=== PATIENT | male | born 1985 | race Caucasian/White ===

== ENCOUNTER 2017-07-11 10:39 | Day surgery (SDC) | payer MEDICARE ==
[2017-07-11] MEDS ORDERED: DIPRIVAN 200 MG/20 ML IV ONE (10:40)
[2017-07-11] MEDS ORDERED: DEXAMETHASONE 10 MG/ML VIAL PF IJ ONE (10:40)
[2017-07-11] MEDS ORDERED: Lactated Ringers 1,000 ML IV ONE (10:40)
[2017-07-11] MEDS ORDERED: XYLOCAINE 1% HCL 20 ML MDV ONE (12:25)
--- NOTE | 2017-07-11 14:26 | XRAY ---
Indication: Right L4-L5 CHANO. Intraoperative fluoroscopy was provided for 52 seconds. 4 digital spot images submitted for interpretation demonstrates posterior spinal needle tips projecting over the expected course of the right L4 and L5 nerve roots. Small amount of contrast injected for needle tip placement. Correlate with intraoperative findings/report.
--- NOTE | 2017-07-11 14:52 | XRAY ---
52 seconds fluoroscopy time in surgery for right L4-L5 CHANO.
--- NOTE | 2017-07-12 13:07 | OP ---
AMENDED REPORT: DATE OF PROCEDURE: 07/11/2017 1219 SURGEON: Gila Forman D.O. PREOPERATIVE DIAGNOSIS: Degenerative lumbar spine disease, lumbar spondylosis. POSTOPERATIVE DIAGNOSIS: Degenerative lumbar spine disease, lumbar spondylosis. PROCEDURES PERFORMED: Right L5-L4 epidural steroid injection under fluoroscopic guidance. DESCRIPTION OF PROCEDURE: The patient was taken to the operating room and laid in the prone position on the table. Skin over the injection site was prepped and draped in sterile fashion. Under fluoroscope bony anatomy at the targeted injection site was visualized. Induction agent was given as per anesthesia while vital signs were monitored. Local anesthetic agent was introduced to anesthetize the skin in the subcutaneous tissue through injection site. Under fluoroscopic guidance a #22-gauge standard spinal needle was advanced into the target facet joint through an oblique approach. Preservative free dexamethasone 10 mg was injected into each of the target epidural space. While the needle was being removed normal saline was simultaneously infiltrated to avoid sterile needle tract. Skin was cleansed with alcohol and then a bandage was applied. There was 40% pain reduction after the procedure. No complications or adverse consequences were observed. The patient was returned to the holding area until stabilized before discharge to home. The patient will be followed up within ten days after the injection for re-evaluation.
== END 2017-07-11 13:20 | disposition home or self-care (01) ==
LOC: SDC-PAIN 10:39
PROVIDERS: ATTEND Internal Medicine
DX: M54.16 Radiculopathy, lumbar region (principal); M51.36 Other intervertebral disc degeneration, lumbar region; M62.838 Other muscle spasm
CPT/HCPCS: 62323; 72020; 77003; J2704; Q9967

== ENCOUNTER 2017-09-05 08:48 | Day surgery (SDC) | payer MEDICARE ==
[2017-09-05] MEDS ORDERED: LIDOCAINE HCL 2% 100 MG/5 ML IJ ONE (08:49)
[2017-09-05] MEDS ORDERED: Marcaine 0.5% SDV 10 ML IJ ONE (08:49)
[2017-09-05] MEDS ORDERED: DIPRIVAN 200 MG/20 ML IV ONE (08:49)
[2017-09-05] MEDS ORDERED: XYLOCAINE-MPF 1% 5ML SDV IJ ONE (08:49)
[2017-09-05] MEDS ORDERED: Lactated Ringers 1,000 ML IV ONE (09:14)
--- NOTE | 2017-09-05 11:02 | XRAY ---
Indication: L3-L4 MBB. Intraoperative fluoroscopy was provided for 37 seconds. 2 digital spot images submitted for interpretation demonstrates posterior spinal needle tip projecting over the right L3-L4 and L4-L5 facets. Correlate with intraoperative findings/report.
--- NOTE | 2017-09-05 12:28 | XRAY ---
37 seconds fluoroscopy time in surgery for L3-L4 nerve MBB.
--- NOTE | 2017-09-06 08:04 | OP ---
DATE OF PROCEDURE: 09/05/2017 1011 SURGEON: Gila Forman D.O. PREOPERATIVE DIAGNOSIS: Degenerative lumbar spine disease, spondylosis, low back pain. POSTOPERATIVE DIAGNOSIS: Degenerative lumbar spine disease, spondylosis, low back pain. PROCEDURE PERFORMED: Right L4-L3 medial branch block under fluoroscopic guidance. DESCRIPTION OF THE PROCEDURE: The patient was taken to the operating room and placed in the prone position on the table. Skin at the injection site was prepped and draped in sterile fashion. Under fluoroscopy, bony anatomy of the targeted injection site was visualized. Induction agent was given as per anesthesia while vital signs were monitored. Local anesthetic agent of 0.5 cc of 1% lidocaine preservative free was introduced to anesthetize the skin and the subcutaneous tissue through the injection site. Under fluoroscopic guidance, a #20 gauge standard spinal needle was advanced into the target medial branch through the oblique approach. The preservative free 0.5 cc of 1% lidocaine and 0.5 cc of 0.25% Marcaine were injected into each of the targeted medial branch nerve. After the needle was being removed, the skin was cleansed with alcohol and then a bandage was applied. No complications or adverse consequences were observed. The patient was returned to the holding area until stabilized before discharge to home. Preoperative pain level is 10-plus out of 10 and postoperative pain level is 6 out of 10. The patient will be followed up within ten days after the injection for re-evaluation.
== END 2017-09-05 10:50 | disposition home or self-care (01) ==
LOC: SDC-PAIN 08:48
PROVIDERS: ATTEND Internal Medicine
DX: M46.96 Unspecified inflammatory spondylopathy, lumbar region (principal); M51.36 Other intervertebral disc degeneration, lumbar region; M62.838 Other muscle spasm; Z79.891 Long term (current) use of opiate analgesic
CPT/HCPCS: 64493; 64494; 72020; 77003; J2704

== ENCOUNTER 2017-10-03 09:55 | Day surgery (SDC) | payer MEDICARE ==
[2017-10-03] MEDS ORDERED: Xylocaine 1% Vial 30 ML PF IJ ONE (09:56)
[2017-10-03] MEDS ORDERED: Marcaine 0.5% SDV 10 ML IJ ONE (09:56)
[2017-10-03] MEDS ORDERED: DIPRIVAN 200 MG/20 ML IV ONE (09:56)
[2017-10-03] MEDS ORDERED: Lactated Ringers 1,000 ML IV ONE (12:05)
--- NOTE | 2017-10-03 13:21 | XRAY ---
1 minute and 11 seconds fluoroscopy time in surgery for L4-5 left MBB.
--- NOTE | 2017-10-03 13:22 | XRAY ---
Indication: Right L4-L5 MBB. Intraoperative fluoroscopy was provided for 1 minute 11 seconds. 3 digital spot images submitted for interpretation demonstrates posterior spinal needle tips projecting over the expected course of the right L4 and L5 nerve roots. Correlate with intraoperative findings/report.
--- NOTE | 2017-10-04 09:00 | OP ---
DATE OF PROCEDURE: 10/03/2017 1150 SURGEON: Gila Forman D.O. PREOPERATIVE DIAGNOSIS: Degenerative lumbar spine disease, spondylosis, low back pain. POSTOPERATIVE DIAGNOSIS: Degenerative lumbar spine disease, spondylosis, low back pain. PROCEDURE PERFORMED: Right L4 L3 medial branch block under fluoroscopic guidance. DESCRIPTION OF THE PROCEDURE: The patient was taken to the operating room and placed in the prone position on the table. Skin at the injection site was prepped and draped in sterile fashion. Under fluoroscopy, bony anatomy of the targeted injection site was visualized. Induction agent was given as per anesthesia while vital signs were monitored. Local anesthetic agent used 9 cc of 1% lidocaine preservative-free. . Under fluoroscopic guidance, a #20 gauge standard spinal needle was advanced into the target medial branch through the oblique approach. The medication used for this procedure is preservative-free 0.5 cc of mixed half volume of 1% lidocaine plus half volume of 0.5% Marcaine to each injection site After the needle was being removed, the skin was cleansed with alcohol and then a bandage was applied. No complications or adverse consequences were observed. The patient was returned to the holding area until stabilized before discharge to home. Preoperative pain level is 8 out of 10 and postoperative pain level is 6 out of 10. The patient will be followed up within ten days after the injection for re-evaluation.
== END 2017-10-03 12:30 | disposition home or self-care (01) ==
LOC: SDC-PAIN 09:55
PROVIDERS: ATTEND Internal Medicine
DX: M46.96 Unspecified inflammatory spondylopathy, lumbar region (principal); M51.36 Other intervertebral disc degeneration, lumbar region; M62.838 Other muscle spasm; Z79.891 Long term (current) use of opiate analgesic
CPT/HCPCS: 64493; 64494; 72020; 77003; J2001; J2704

== ENCOUNTER 2018-02-13 09:10 | Day surgery (SDC) | payer MEDICARE ==
[2018-02-13] MEDS ORDERED: Depo-Medrol 40 MG/ML IM ONE (09:11)
[2018-02-13] MEDS ORDERED: LIDOCAINE HCL 2% 100 MG/5 ML IJ ONE (09:11)
[2018-02-13] MEDS ORDERED: Xylocaine 1% Vial 30 ML PF IJ ONE (09:11)
[2018-02-13] MEDS ORDERED: DIPRIVAN 200 MG/20 ML IV ONE (09:11)
[2018-02-13] MEDS ORDERED: Lactated Ringers 1,000 ML IV ONE (10:09)
--- NOTE | 2018-02-13 13:23 | XRAY ---
Indication: Bilateral L3-S1 MBB. Intraoperative fluoroscopy was provided for 26 seconds. 2 digital spot images submitted for interpretation demonstrates posterior spinal needle tips projecting over the expected course of the left and right L3, L4, L5, and S1 nerve roots. Correlate with intraoperative findings/report.
--- NOTE | 2018-02-13 13:25 | XRAY ---
26 seconds fluoroscopy time for L3-S1 injection.
== END 2018-02-13 11:05 | disposition home or self-care (01) ==
LOC: SDC-PAIN 09:10
PROVIDERS: ATTEND Psychiatry & Neurology Pain Medicine
DX: M48.8X6 Other specified spondylopathies, lumbar region (principal); M47.816 Spondylosis without myelopathy or radiculopathy, lumbar region
CPT/HCPCS: 64493; 64494; 64495; 72100; 76000; J1030; J2001; J2704

== ENCOUNTER 2018-03-27 09:33 | Day surgery (SDC) | payer MEDICARE ==
[2018-03-27] MEDS ORDERED: Depo-Medrol 40 MG/ML IM ONE (09:34)
[2018-03-27] MEDS ORDERED: Marcaine 0.5% SDV 10 ML IJ ONE (09:34)
[2018-03-27] MEDS ORDERED: DIPRIVAN 200 MG/20 ML IV ONE (09:34)
[2018-03-27] MEDS ORDERED: Lactated Ringers 1,000 ML IV ONE (12:38)
--- NOTE | 2018-03-27 12:43 | XRAY ---
Indication: Bilateral L3-S1 MBB. Intraoperative fluoroscopy was provided for 12 seconds. 3 digital spot images submitted for interpretation demonstrates posterior spinal needle tips along the expected course of the left and right L3-S1 nerve roots. Correlate with intraoperative findings/report.
--- NOTE | 2018-03-27 12:46 | XRAY ---
12 seconds of fluoroscopy was used in surgery for bilateral L3-S1 MBB.
== END 2018-03-27 12:10 | disposition home or self-care (01) ==
LOC: SDC-PAIN 09:33
PROVIDERS: ATTEND Psychiatry & Neurology Pain Medicine
DX: M48.8X6 Other specified spondylopathies, lumbar region (principal)
CPT/HCPCS: 64493; 64494; 64495; 72020; 77003; J1030; J2704

== ENCOUNTER 2018-05-01 12:59 | Day surgery (SDC) | payer MEDICARE ==
[2018-05-01] MEDS ORDERED: Marcaine 0.5% SDV 10 ML IJ ONE (13:00)
[2018-05-01] MEDS ORDERED: Depo-Medrol 40 MG/ML IM ONE (13:00)
[2018-05-01] MEDS ORDERED: DIPRIVAN 200 MG/20 ML IV ONE (13:00)
[2018-05-01] MEDS ORDERED: Lactated Ringers 1,000 ML IV ONE (14:53)
--- NOTE | 2018-05-01 16:16 | XRAY ---
Indication: Bilateral SI joint injections. Intraoperative fluoroscopy was provided for 23 seconds. 4 digital spot images submitted for interpretation demonstrates a posterior spinal needle tip projecting over the mid to inferior left and right SI joints. Correlate with intraoperative findings/report.
--- NOTE | 2018-05-01 16:22 | XRAY ---
23 seconds fluoroscopy time in surgery for bilateral SI joint injections.
== END 2018-05-01 14:50 | disposition home or self-care (01) ==
LOC: SDC-PAIN 12:59
PROVIDERS: ATTEND Psychiatry & Neurology Pain Medicine
DX: M48.8X6 Other specified spondylopathies, lumbar region (principal); M46.1 Sacroiliitis, not elsewhere classified; M47.817 Spondylosis without myelopathy or radiculopathy, lumbosacral region
CPT/HCPCS: 27096; 72020; 77002; J1030; J2704; G0260

== ENCOUNTER 2018-06-26 08:43 | Day surgery (SDC) | payer MEDICARE ==
[2018-06-26] MEDS ORDERED: Xylocaine 1% Vial 30 ML PF IJ ONE (08:44)
[2018-06-26] MEDS ORDERED: Marcaine 0.5% SDV 10 ML IJ ONE (08:44)
[2018-06-26] MEDS ORDERED: DIPRIVAN 200 MG/20 ML IV ONE (08:44)
[2018-06-26] MEDS ORDERED: Depo-Medrol 40 MG/ML IM ONE (08:44)
[2018-06-26] MEDS ORDERED: TORAdol 30 mg Injection ONE (10:21)
[2018-06-26] MEDS ORDERED: MORPHINE SULFATE 10 MG/ML ONE (10:24)
--- NOTE | 2018-06-26 10:58 | XRAY ---
34 seconds fluoroscopy time in surgery for L3-S1 RFA.
--- NOTE | 2018-06-26 12:09 | XRAY ---
Indication: Left L3-S1 RFA. Intraoperative fluoroscopy was provided for 34 seconds. 2 digital spot images submitted for interpretation demonstrates posterior spinal needle tips projecting over the expected course of the left L3-S1 nerve roots. Correlate with intraoperative findings/report.
[2018-06-26] MEDS ORDERED: Lactated Ringers 1,000 ML IV ONE (14:58)
== END 2018-06-26 10:37 | disposition home or self-care (01) ==
LOC: SDC-PAIN 08:43
PROVIDERS: ATTEND Psychiatry & Neurology Pain Medicine
DX: M47.816 Spondylosis without myelopathy or radiculopathy, lumbar region (principal); K50.90 Crohn's disease, unspecified, without complications; M19.90 Unspecified osteoarthritis, unspecified site; Z79.899 Other long term (current) drug therapy
CPT/HCPCS: 72020; 77002; J1030; J1885; J2001; J2270; J2704

== ENCOUNTER 2018-07-24 10:37 | Day surgery (SDC) | payer MEDICARE ==
[2018-07-24] MEDS ORDERED: DIPRIVAN 200 MG/20 ML IV ONE (10:38)
[2018-07-24] MEDS ORDERED: Marcaine 0.5% SDV 10 ML IJ ONE (10:38)
[2018-07-24] MEDS ORDERED: Xylocaine 1% Vial 30 ML PF IJ ONE ×2 (10:38)
[2018-07-24] MEDS ORDERED: Depo-Medrol 40 MG/ML IM ONE (10:38)
[2018-07-24] MEDS ORDERED: Ketamine HCl 50 MG/ML IV ONE (10:38)
[2018-07-24] MEDS ORDERED: MORPHINE SULFATE 10 MG/ML ONE ×2 (12:39→12:49)
--- NOTE | 2018-07-24 13:29 | XRAY ---
30 seconds fluoroscopy time in surgery for L3-S1 RFA.
--- NOTE | 2018-07-24 13:30 | XRAY ---
Indication: L3-S1 RFA. Intraoperative fluoroscopy was provided for 30 seconds. 2 digital spot images submitted for interpretation demonstrates posterior needle tips projecting over the expected course of the right L3-S1 nerve roots. Correlate with intraoperative findings/report.
[2018-07-24] MEDS ORDERED: Lactated Ringers 1,000 ML IV ONE (14:37)
== END 2018-07-24 13:02 | disposition home or self-care (01) ==
LOC: SDC-PAIN 10:37
PROVIDERS: ATTEND Psychiatry & Neurology Pain Medicine
DX: M47.817 Spondylosis without myelopathy or radiculopathy, lumbosacral region (principal); Z79.899 Other long term (current) drug therapy
CPT/HCPCS: 72100; 77002; J1030; J2001; J2270; J2704

== ENCOUNTER 2019-10-08 09:53 | Day surgery (SDC) | payer MEDICARE ==
[2019-10-08] MEDS ORDERED: Marcaine 0.5% SDV 10 ML IM ONE (09:54)
[2019-10-08] MEDS ORDERED: Depo-Medrol 40 MG/ML IM ONE (09:54)
[2019-10-08] MEDS ORDERED: Ketamine HCl 50 MG/ML ONE (11:45)
[2019-10-08] MEDS ORDERED: DIPRIVAN 200 MG/20 ML IV ONE ×2 (11:45→11:53)
--- NOTE | 2019-10-08 13:04 | XRAY ---
Indication: Bilateral L3-S1 MBB. Intraoperative fluoroscopy was provided for 20 seconds. Single digital spot image submitted for interpretation demonstrate posterior needle tips projecting over the expected course of the left and right L3-S1 nerve roots. Correlate with intraoperative findings/report.
--- NOTE | 2019-10-08 13:33 | XRAY ---
20 seconds fluoroscopy time in surgery for bilateral L3-S1 MBB.
[2019-10-08] MEDS ORDERED: Lactated Ringers 1,000 ML IV ONE (14:46)
== END 2019-10-08 12:18 | disposition home or self-care (01) ==
LOC: SDC-PAIN 09:53
PROVIDERS: ATTEND Psychiatry & Neurology Pain Medicine
DX: M47.816 Spondylosis without myelopathy or radiculopathy, lumbar region (principal); K50.90 Crohn's disease, unspecified, without complications; K21.9 Gastro-esophageal reflux disease without esophagitis; Z79.899 Other long term (current) drug therapy
CPT/HCPCS: 64493; 64494; 64495; 72020; 77002; J1030; J2704

== ENCOUNTER 2020-01-14 11:18 | Day surgery (SDC) | payer MEDICARE ==
[2020-01-14] MEDS ORDERED: Depo-Medrol 40 MG/ML IM ONE (11:19)
[2020-01-14] MEDS ORDERED: Xylocaine 1% Vial 30 ML PF IJ ONE (11:19)
[2020-01-14] MEDS ORDERED: BUPIVACAINE 0.5% VIAL IJ ONE (11:19)
[2020-01-14] MEDS ORDERED: Ketamine HCl 50 MG/ML ONE (13:46)
[2020-01-14] MEDS ORDERED: DIPRIVAN 200 MG/20 ML IV ONE (13:46)
[2020-01-14] MEDS ORDERED: SUBLIMAZE 100 MCG/2 ML ONE (13:47)
--- NOTE | 2020-01-14 15:08 | XRAY ---
Indication: Right L3-S1 RFA. Intraoperative fluoroscopy was provided for 31 seconds. 3 digital spot images submitted for interpretation demonstrates posterior needle tips projecting over the expected course of the right L3-S1 nerve root. Correlate with intraoperative findings/report.
--- NOTE | 2020-01-14 15:13 | XRAY ---
31 seconds fluoroscopy time in surgery for right L3-S1 RFA.
[2020-01-14] MEDS ORDERED: Lactated Ringers 1,000 ML IV ONE (15:31)
== END 2020-01-14 14:20 | disposition home or self-care (01) ==
LOC: SDC-PAIN 11:18
PROVIDERS: ATTEND Psychiatry & Neurology Pain Medicine
DX: M47.816 Spondylosis without myelopathy or radiculopathy, lumbar region (principal); E11.9 Type 2 diabetes mellitus without complications; K50.90 Crohn's disease, unspecified, without complications; Z79.899 Other long term (current) drug therapy
CPT/HCPCS: 64635; 64636; 72100; 77002; 82962; J1030; J2001; J2704; J3010

== ENCOUNTER 2020-01-28 10:13 | Day surgery (SDC) | payer MEDICARE ==
[~2020-01-28 10:13] MED LIST: DIPRIVAN 200 MG/20 ML IV ONE; Ketamine HCl 50 MG/ML ONE; Versed 2 MG/2 ML Injection ONE
[2020-01-28] MEDS ORDERED: Xylocaine 1% Vial 30 ML PF IJ ONE (10:14)
[2020-01-28] MEDS ORDERED: BUPIVACAINE 0.5% VIAL IJ ONE (10:14)
[2020-01-28] MEDS ORDERED: Depo-Medrol 40 MG/ML IM ONE (10:14)
--- NOTE | 2020-01-28 13:27 | XRAY ---
Indication: Left L3-S1 RFA. Intraoperative fluoroscopy was provided for 43 seconds. 3 digital spot images submitted for interpretation demonstrates posterior needle tips projecting over the expected left L3-S1 nerve roots. Correlate with intraoperative findings/report.
--- NOTE | 2020-01-28 14:06 | XRAY ---
43 seconds of fluoroscopy was used in surgery for a left L3-L4, L4-L5, and L5-S1 RFA.
[2020-01-28] MEDS ORDERED: Lactated Ringers 1,000 ML IV ONE (15:50)
== END 2020-01-28 12:41 | disposition home or self-care (01) ==
LOC: SDC-PAIN 10:13
PROVIDERS: ATTEND Psychiatry & Neurology Pain Medicine
DX: M47.816 Spondylosis without myelopathy or radiculopathy, lumbar region (principal); M47.817 Spondylosis without myelopathy or radiculopathy, lumbosacral region; E11.9 Type 2 diabetes mellitus without complications; K21.9 Gastro-esophageal reflux disease without esophagitis; K50.90 Crohn's disease, unspecified, without complications
CPT/HCPCS: 64635; 64636; 72100; 77002; 82962; J1030; J2001; J2250; J2704